=== PATIENT | male | born 1945 | race Caucasian/White ===

== ENCOUNTER → 2017-07-25 | Outpatient (CLI) | payer MEDICARE, OTHER ==
[~2017-07-25] MED LIST: ABACAVIR-LAMIV1 EAC1 PO; ACET325 PO; ACIDOPHILUS1 EAC1 PO; ALEN35 PO; ALEN70 PO; ASPI325 PO; ASPI81CH PO; ASPI81EC PO; Adult Low Dose81 MG PO; BENFOTIAMINE; CALCA500CH PO; CHOL10002 PO; CODACE30 PO; CREON DR 36,001 EACH PO; CYAN1000I; CYCL10; CYCL10 PO; DOCU100 PO; EPIZICOM PO; EPZICOM PO; ERGO400 PO; HIV MED; HYDCHL12.5 PO; LAVAP17G PO; LISI20 PO; LORA.5 PO; METO25ER PO; METO50 PO; MOVANTIK12.5 MG PO; NEVI200; NEVI200 PO; ONDA4ODT MM; OXYC5 PO; PANCREAZE DR 11 EAC3 PO; PROM25 PO; SILD50TA; ZOLP10
== END ==
LOC: LAB SHORT 12:00
DX: C25.0 Malignant neoplasm of head of pancreas (principal)
CPT/HCPCS: 86301